=== PATIENT | female | born 1965 | race Caucasian/White ===

== ENCOUNTER 2017-10-24 18:56 | Emergency (ER) | payer SELFPAY ==
[~2017-10-24] VITALS: Ht 162.6 cm; Wt 71.0 kg
[2017-10-24 19:55] LABS: BASOPHILS % 0.3 % (0.0-2.0); EOSINOPHILS % 0.3 % (0.0-5.0); HEMATOCRIT. 38.9 % (36.0-48.0); LYMPHOCYTES % 15.8 % (20.0-50.0); MEAN CORPUSCULAR HEMOGLOBIN 30.8 pg (28.0-32.0); MEAN CORPUSCULAR VOLUME 92.1 fL (81.0-99.0); MEAN PLATELET VOLUME 8.9 fl (7.4-10.4); NEUTROPHILS % 78.6 % (40.0-76.0); PLATELET 273 x1000/uL (130-400); RED BLOOD CELL COUNT 4.23 mill/uL (4.2-5.4); RED CELL DISTRIBUTION WIDTH 13.4 % (11.6-14.6)
[2017-10-24 20:00] LABS: CHLORIDE 112 mEq/L (98-107)
[2017-10-24 20:02] LABS: PARTIAL THROMBOPLASTIN TIME 23.9 sec (23.4-31.0); PROTHROMBIN TIME 10.7 sec (9.4-11.6)
[2017-10-24 23:38] VITALS: BP 126/71
== END 2017-10-24 23:46 | disposition home or self-care (01) ==
LOC: ER 18:56 → EDBEDREQ 19:33 → ER 23:46 → CANBEDREQ 23:49
DX: R09.89 Other specified symptoms and signs involving the circulatory and respiratory systems (principal); R11.10 Vomiting, unspecified; I10 Essential (primary) hypertension; Z98.890 Other specified postprocedural states
CPT/HCPCS: 36415; 70490; 71045; 80053; 83690; 83880; 84443; 84484; 85025; 85610; 85730; 93005; 99285